=== PATIENT | female | born 1960 | race Caucasian/White ===

== ENCOUNTER 2023-03-09 17:25 | Inpatient (IN) | payer OTHER ==
[~2023-03-09] VITALS: Ht 162.6 cm; Wt 36.7 kg
[~2023-03-09 17:25] MED LIST: PIPERACILLIN /TAZOBACTAM 3.375 G in IV D5W 50 ML IV SCH
[2023-03-09 18:37] LABS: BASOPHILS % (AUTO) 0.1 % (0.0-2.0); EOSINOPHILS % (AUTO) 1.2 % (0.0-6.0); HEMATOCRIT 30 % (33-45); HEMOGLOBIN 10.3 g/dL (11.5-14.8); LYMPHOCYTES # (AUTO) 0.1 K/uL (0.8-4.8); LYMPHOCYTES % (AUTO) 6.1 % (20.0-44.0); MEAN CORPUSCULAR HEMOGLOBIN 32 PG (26.0-33.0); MEAN CORPUSCULAR HGB CONC 34 g/dl (31.0-36.0); MEAN CORPUSCULAR VOLUME 93 fL (82-100); MONOCYTES # (AUTO) 0.3 K/uL (0.1-1.30); MONOCYTES % (AUTO) 11.9 % (2.0-12.0); NEUTROPHILS # (AUTO) 1.7 K/uL (1.8-8.9); NEUTROPHILS % (AUTO) 80.7 % (43.0-81.0); PLATELET COUNT (AUTO) 58 K/uL (150-450); RED BLOOD CELL COUNT(AUTO) 3.24 MIL/uL (4.0-5.2); RED CELL DISTRIBUTION WIDTH 19.8 % (11.5-15.0); WHITE BLOOD COUNT (AUTO) 2.1 K/uL (4.3-11.0)
[2023-03-09 18:45] LABS: CALCIUM, SERUM 10.2 mg/dL (8.5-10.1); CARBON DIOXIDE 25 mmol/L (21-32); CHLORIDE 97 mmol/L (98-107); GLUCOSE 106 mg/dL (74-106); SODIUM SERUM 129 mmol/L (136-145); UREA NITROGEN, BLOOD 18 mg/dL (7-18)
[2023-03-09 18:51] LABS: ALANINE AMINOTRANSFERASE 34 U/L (12-78); ALBUMIN 2.2 g/dL (3.4-5.0); ALKALINE PHOSPHATASE 238 U/L (46-116); ASPARTATE AMINOTRANSFERASE 96 U/L (15-37); BILIRUBIN,DIRECT 12.6 mg/dL (0.0-0.2); BILIRUBIN,TOTAL 16.1 mg/dL (0.2-1.0); TOTAL PROTEIN, SERUM 6.7 g/dL (6.4-8.2)
[2023-03-09 18:59] LABS: LACTIC ACID 2.4 mmol/L (0.4-2.0)
[2023-03-09 19:03] LABS: INR 1.4 (0.91-1.10); PARTIAL THROMBOPLASTIN TIME 35.6 SEC (24.3-34.3); PROTHROMBIN TIME 14.5 SECS (9.2-11.1)
[2023-03-09 19:15] LABS: BAND % (MANUAL) 2 % (0.0-5.0); LYMPHOCYTES % (MANUAL) 8 % (16-48); MONOCYTES % (MANUAL) 6 % (0-11.0); NEUTROPHILS % (MANUAL) 84 (42-76)
[2023-03-09 19:16] LABS: ANISOCYTOSIS 1+; PLATELET ESTIMATE DECRE
[2023-03-09 19:17] LABS: OVALOCYTES 1+
[2023-03-09] MEDS ORDERED: LACTULOSE 10 G/15 ML UDC (PYXIS) ONE (19:20)
[2023-03-09] MEDS ORDERED: LACTULOSE 10 G/15 ML UDC (PYXIS) GT ONE (19:30)
[2023-03-09] MEDS ORDERED: IV NS 0.9% 1,000 ML BAG IV ONE (20:30)
[2023-03-09 20:46] LABS: APPEARANCE,URINE CLEAR (CLEAR); BILIRUBIN,URINE 3+ (NEGATIVE); BLOOD, URINE NEGATIVE Ery/uL (NEGATIVE); COLOR,URINE YELLOW (YELLOW); KETONES,URINE NEGATIVE (NEGATIVE); LEUKOCYTE ESTERASE ,URINE NEGATIVE (NEGATIVE); NITRITE, URINE NEGATIVE (NEGATIVE); PROTEIN,URINE NEGATIVE (NEGATIVE); UGLUCOSE NEGATIVE (NEGATIVE); UROBILINOGEN,URINE 0.2 EU/dL (0.2)
[2023-03-09 20:53] LABS: ADD URINE CULTURE NO; BACTERIA,URINE None seen /HPF (None Seen); RBC,URINE 0-2 /HPF (0-2); URINE AMORPHOUS PHOSPHATES Many /HPF (None Seen); WBC,URINE 0-2 /HPF (0-3)
[2023-03-09] MEDS ORDERED: CEFTRIAXONE 1GM BAG (ER ONLY) 1 GM/50 ML PIGGYBACK IV ONE (21:30)
[2023-03-09] MEDS ORDERED: CEFTRIAXONE 1GM BAG (ER ONLY) 50 ML IV ONE (21:42)
[2023-03-09] MEDS ORDERED: IV D5/ 0.9% NACL 1,000 ML IV PRN (23:00)
[2023-03-09] MEDS ORDERED: LACTULOSE UDC 200 G in SODIUM CHLORIDE IRRIG SOLUTION 400 ML IR ONE (23:00)
[2023-03-09] MEDS: LACTULOSE 10 G/15 ML UDC (PYXIS) NG SCH (23:38)
[2023-03-10] MEDS ORDERED: ZOSYN IVPB 3.375 G in IV D5W 50ml IV ONE ×2
[2023-03-10] MEDS ORDERED: PIPERACI/TAZO 3.375GM/D5W 50ML PB IV ONE (00:31)
[2023-03-10] MEDS: LACTULOSE 10 G/15 ML UDC (PYXIS) NG SCH ×2 (05:03→09:59)
[2023-03-10 07:18] LABS: BILIRUBIN,TOTAL 15.4 mg/dL (0.2-1.0); CREATININE 0.8 mg/dL (0.6-1.3); POTASSIUM 3.9 mmol/L (3.5-5.1); TOTAL PROTEIN, SERUM 6.4 g/dL (6.4-8.2)
[2023-03-10 07:19] LABS: LACTIC ACID 1.5 mmol/L (0.4-2.0)
[2023-03-10 07:20] LABS: BASOPHILS % (AUTO) 0.2 % (0.0-2.0); HEMATOCRIT 28 % (33-45); HEMOGLOBIN 9.8 g/dL (11.5-14.8); LYMPHOCYTES # (AUTO) 0.2 K/uL (0.8-4.8); LYMPHOCYTES % (AUTO) 13.3 % (20.0-44.0); MEAN CORPUSCULAR HEMOGLOBIN 32 PG (26.0-33.0); MEAN CORPUSCULAR HGB CONC 34 g/dl (31.0-36.0); MEAN CORPUSCULAR VOLUME 92 fL (82-100); MONOCYTES # (AUTO) 0.2 K/uL (0.1-1.30); MONOCYTES % (AUTO) 12.6 % (2.0-12.0); NEUTROPHILS % (AUTO) 72.9 % (43.0-81.0); PLATELET COUNT (AUTO) 57 K/uL (150-450); RED BLOOD CELL COUNT(AUTO) 3.11 MIL/uL (4.0-5.2)
[2023-03-10 07:45] LABS: WHITE BLOOD COUNT (AUTO) 1.3 K/uL (4.3-11.0)
[2023-03-10 08:00] VITALS: BP 103/49; TEMP 97.3; O2SAT 100
[2023-03-10] MEDS ORDERED: LACTULOSE UDC 200 G in SODIUM CHLORIDE IRRIG SOLUTION 400 ML IR ONE (08:00)
[2023-03-10] MEDS ORDERED: FURO-145 PO (08:13)
[2023-03-10] MEDS ORDERED: PANT40TA2 PO (08:13)
[2023-03-10] MEDS ORDERED: ERGO500040 PO (08:13)
[2023-03-10] MEDS ORDERED: SUCR1TAB PO (08:13)
[2023-03-10] MEDS ORDERED: URSO500T10 PO (08:13)
[2023-03-10] MEDS ORDERED: LACT10SO58 PO (08:13)
[2023-03-10] MEDS ORDERED: FLUC200T8 PO (08:13)
[2023-03-10] MEDS ORDERED: ZINC220C6 PO (08:13)
[2023-03-10] MEDS ORDERED: MIDO10TA PO (08:13)
[2023-03-10] MEDS ORDERED: RIFA550T PO (08:13)
[2023-03-10] MEDS ORDERED: FENO145T21 PO (08:13)
[2023-03-10] MEDS ORDERED: CIPR500T5 PO (08:13)
[2023-03-10] MEDS ORDERED: SPIR50TA5 PO (08:13)
[2023-03-10] MEDS: PIPERACILLIN /TAZOBACTAM 3.375 G in IV D5W 100 ML IV SCH ×3 (08:51→18:16)
[2023-03-10] MEDS: FUROSEMIDE 20 MG TABLET PO SCH ×2 (09:00→09:51)
[2023-03-10] MEDS ORDERED: HYDROGEL DRESSING 90 GM TUBE TP PRN (09:30)
[2023-03-10] MEDS: PANTOPRAZOLE 40 MG TABLET.DR PO SCH ×2 (09:51→16:25)
[2023-03-10] MEDS: SUCRALFATE 1 G TABLET PO SCH ×4 (09:52→21:32)
[2023-03-10] MEDS: FENOFIBRATE NANOCRYS (145 MG) 145 MG TABLET PO SCH (09:52)
[2023-03-10] MEDS: HYDROGEL DRESSING 90 GM TUBE TP SCH (09:52)
[2023-03-10] MEDS: RIFAXIMIN 550 MG TABLET PO SCH ×2 (09:52→16:25)
[2023-03-10 09:56] LABS: FERRITIN 84 ng/mL (8-388)
[2023-03-10 10:20] LABS: EOSINOPHILS % (MANUAL) 1 % (0-4); LYMPHOCYTES % (MANUAL) 15 % (16-48); MONOCYTES % (MANUAL) 8 % (0-11.0); NEUTROPHILS % (MANUAL) 76 (42-76)
[2023-03-10 10:21] LABS: ANISOCYTOSIS 1+; PLATELET ESTIMATE DECREASED
[2023-03-10 16:00] VITALS: BP 98/47; TEMP 97.1; O2SAT 100
[2023-03-10] MEDS: LACTULOSE 10 G/15 ML UDC (PYXIS) PO SCH ×2 (16:26→23:17)
[2023-03-10 20:00] VITALS: BP 99/57; TEMP 97.5; O2SAT 100
[2023-03-11] VITALS: BP 91/57; TEMP 97.7; O2SAT 99
[2023-03-11] MEDS: PIPERACILLIN /TAZOBACTAM 3.375 G in IV D5W 100 ML IV SCH (01:30)
[2023-03-11 04:00] VITALS: BP 101/75; TEMP 97.7; O2SAT 100
[2023-03-11] MEDS: LACTULOSE 10 G/15 ML UDC (PYXIS) PO SCH ×4 (05:09→21:36)
[2023-03-11 07:14] LABS: BASOPHILS % (AUTO) 0.3 % (0.0-2.0); HEMATOCRIT 28 % (33-45); HEMOGLOBIN 9.5 g/dL (11.5-14.8); LYMPHOCYTES # (AUTO) 0.2 K/uL (0.8-4.8); LYMPHOCYTES % (AUTO) 8.4 % (20.0-44.0); MEAN CORPUSCULAR HEMOGLOBIN 32 PG (26.0-33.0); MEAN CORPUSCULAR HGB CONC 34 g/dl (31.0-36.0); MEAN CORPUSCULAR VOLUME 92 fL (82-100); MONOCYTES # (AUTO) 0.2 K/uL (0.1-1.30); MONOCYTES % (AUTO) 10.2 % (2.0-12.0); NEUTROPHILS # (AUTO) 1.6 K/uL (1.8-8.9); NEUTROPHILS % (AUTO) 80.1 % (43.0-81.0); RED BLOOD CELL COUNT(AUTO) 3.01 MIL/uL (4.0-5.2); RED CELL DISTRIBUTION WIDTH 19.8 % (11.5-15.0); WHITE BLOOD COUNT (AUTO) 2.1 K/uL (4.3-11.0)
[2023-03-11 07:50] LABS: ALBUMIN 1.9 g/dL (3.4-5.0); BILIRUBIN,TOTAL 14.7 mg/dL (0.2-1.0); CALCIUM, SERUM 9.6 mg/dL (8.5-10.1); CREATININE 0.9 mg/dL (0.6-1.3); MAGNESIUM 1.8 mg/dL (1.8-2.4); POTASSIUM 4.3 mmol/L (3.5-5.1); TOTAL PROTEIN, SERUM 6.2 g/dL (6.4-8.2)
[2023-03-11 08:00] VITALS: BP 100/61; TEMP 97.9; O2SAT 100
[2023-03-11 08:51] LABS: PLATELET COUNT (AUTO) 49 K/uL (150-450)
[2023-03-11] MEDS: SPIRONOLACTONE 25 MG TABLET PO SCH (09:45)
[2023-03-11] MEDS: SUCRALFATE 1 G TABLET PO SCH ×4 (09:46→21:33)
[2023-03-11] MEDS: PANTOPRAZOLE 40 MG TABLET.DR PO SCH ×2 (09:46→17:20)
[2023-03-11] MEDS: FENOFIBRATE NANOCRYS (145 MG) 145 MG TABLET PO SCH (09:46)
[2023-03-11] MEDS: RIFAXIMIN 550 MG TABLET PO SCH ×2 (09:46→17:20)
[2023-03-11] MEDS: FUROSEMIDE 20 MG TABLET PO SCH (09:46)
[2023-03-11] MEDS: FLUCONAZOLE (100 MG) 100 MG TABLET PO SCH (09:46)
[2023-03-11] MEDS: ZINC SULFATE 220 MG CAPSULE PO SCH (09:46)
[2023-03-11] MEDS: URSODIOL 500 MG PO SCH ×2 (09:47→17:20)
[2023-03-11] MEDS: HYDROGEL DRESSING 90 GM TUBE TP SCH (09:48)
[2023-03-11 12:00] VITALS: BP 104/67; TEMP 98.7; O2SAT 99
[2023-03-11 16:00] VITALS: BP 96/61; TEMP 97.1; O2SAT 99
[2023-03-11 20:00] VITALS: BP 98/62; TEMP 98.1; O2SAT 100
[2023-03-11 21:30] LABS: ANISOCYTOSIS 1+; BAND % (MANUAL) 1 % (0.0-5.0); EOSINOPHILS % (MANUAL) 1 % (0-4); LYMPHOCYTES % (MANUAL) 7 % (16-48); MONOCYTES % (MANUAL) 15 % (0-11.0); NEUTROPHILS % (MANUAL) 76 (42-76); PLATELET ESTIMATE DECREASED
[2023-03-11] MEDS: ACETAMINOPHEN 650 MG/20.3 ML UDC NG PRN (21:36)
[2023-03-12] VITALS: BP 115/67; TEMP 97.7; O2SAT 97
[2023-03-12] MEDS: ACETAMINOPHEN 650 MG/20.3 ML UDC NG PRN (02:13)
[2023-03-12 03:07] LABS: HBSAG SCREEN Negative (Negative); HEPATITIS A AB, IgM Negative (Negative); HEPATITIS B CORE AB, IgM Negative (Negative)
[2023-03-12 04:00] VITALS: BP 90/58; TEMP 97.9; O2SAT 98
[2023-03-12] MEDS: LACTULOSE 10 G/15 ML UDC (PYXIS) PO SCH ×3 (05:07→18:41)
[2023-03-12 08:00] VITALS: BP 96/57; TEMP 98.1; O2SAT 98
[2023-03-12 08:16] LABS: ALBUMIN 1.8 g/dL (3.4-5.0); CALCIUM, SERUM 9.7 mg/dL (8.5-10.1); POTASSIUM 4.4 mmol/L (3.5-5.1)
[2023-03-12 08:49] LABS: BASOPHILS % (AUTO) 0.3 % (0.0-2.0); EOSINOPHILS % (AUTO) 0.8 % (0.0-6.0); HEMATOCRIT 28 % (33-45); HEMOGLOBIN 9.5 g/dL (11.5-14.8); LYMPHOCYTES # (AUTO) 0.2 K/uL (0.8-4.8); LYMPHOCYTES % (AUTO) 8.9 % (20.0-44.0); MEAN CORPUSCULAR HEMOGLOBIN 31 PG (26.0-33.0); MEAN CORPUSCULAR HGB CONC 34 g/dl (31.0-36.0); MEAN CORPUSCULAR VOLUME 92 fL (82-100); MONOCYTES # (AUTO) 0.2 K/uL (0.1-1.30); MONOCYTES % (AUTO) 9.4 % (2.0-12.0); NEUTROPHILS # (AUTO) 2.1 K/uL (1.8-8.9); NEUTROPHILS % (AUTO) 80.6 % (43.0-81.0); RED BLOOD CELL COUNT(AUTO) 3.08 MIL/uL (4.0-5.2); RED CELL DISTRIBUTION WIDTH 20.5 % (11.5-15.0); WHITE BLOOD COUNT (AUTO) 2.6 K/uL (4.3-11.0)
[2023-03-12] MEDS: SUCRALFATE 1 G TABLET PO SCH ×4 (11:38→20:41)
[2023-03-12] MEDS: SPIRONOLACTONE 25 MG TABLET PO SCH (11:38)
[2023-03-12] MEDS: FLUCONAZOLE (100 MG) 100 MG TABLET PO SCH (11:40)
[2023-03-12] MEDS: FUROSEMIDE 20 MG TABLET PO SCH (11:40)
[2023-03-12] MEDS: FENOFIBRATE NANOCRYS (145 MG) 145 MG TABLET PO SCH (11:40)
[2023-03-12] MEDS: PANTOPRAZOLE 40 MG TABLET.DR PO SCH ×2 (11:40→18:41)
[2023-03-12] MEDS: ZINC SULFATE 220 MG CAPSULE PO SCH (11:41)
[2023-03-12] MEDS: RIFAXIMIN 550 MG TABLET PO SCH ×2 (11:41→18:42)
[2023-03-12] MEDS: URSODIOL 500 MG PO SCH ×2 (11:42→18:41)
[2023-03-12] MEDS: HYDROGEL DRESSING 90 GM TUBE TP SCH (11:43)
[2023-03-12 12:00] VITALS: BP 109/62; TEMP 97.7; O2SAT 100
[2023-03-12 16:00] VITALS: BP 101/68; TEMP 97.9; O2SAT 98
[2023-03-12 16:45] LABS: PROTEIN, BODY FLUID 1.2 G/DL
[2023-03-12 16:48] LABS: APPEARANCE,SPUN,BODY FLUID CLEAR (CLEAR)
[2023-03-12 16:50] LABS: TOTAL VOLUME,BODY FLUID 1050 mL; WBC, BODY FLUID 96 /cu. mm. (0-200)
[2023-03-12 17:18] LABS: MACROPHAGES, BODY FLUID 21
[2023-03-12 17:19] LABS: MONOCYTES,BODY FLUID 35 %; POLYNUCLEAR, BODY FLUID 26 % (0-25)
[2023-03-12 17:42] LABS: ANISOCYTOSIS 1+; BAND % (MANUAL) 6 % (0.0-5.0); LYMPHOCYTES % (MANUAL) 8 % (16-48); MONOCYTES % (MANUAL) 16 % (0-11.0); NEUTROPHILS % (MANUAL) 70 (42-76); PLATELET ESTIMATE DECREASED
[2023-03-12 20:00] VITALS: BP 103/68; TEMP 97.8; TEMP 97.9; O2SAT 97; O2SAT 99
[2023-03-13] VITALS: BP 106/64; TEMP 98; O2SAT 97
[2023-03-13] MEDS: LACTULOSE 10 G/15 ML UDC (PYXIS) PO SCH ×4 (01:25→18:08)
[2023-03-13 01:50] LABS: PLATELET COUNT (AUTO) 61 K/uL (150-450)
[2023-03-13 04:00] VITALS: BP 99/62; TEMP 98.2; O2SAT 94
[2023-03-13 04:51] VITALS: BP 99/62; TEMP 98.2; O2SAT 100
[2023-03-13 07:03] LABS: BASOPHILS % (AUTO) 0.2 % (0.0-2.0); EOSINOPHILS % (AUTO) 0.4 % (0.0-6.0); HEMATOCRIT 31 % (33-45); HEMOGLOBIN 10.8 g/dL (11.5-14.8); LYMPHOCYTES # (AUTO) 0.2 K/uL (0.8-4.8); LYMPHOCYTES % (AUTO) 5.5 % (20.0-44.0); MEAN CORPUSCULAR HEMOGLOBIN 32 PG (26.0-33.0); MEAN CORPUSCULAR HGB CONC 35 g/dl (31.0-36.0); MEAN CORPUSCULAR VOLUME 92 fL (82-100); MONOCYTES # (AUTO) 0.3 K/uL (0.1-1.30); MONOCYTES % (AUTO) 9.7 % (2.0-12.0); NEUTROPHILS # (AUTO) 2.8 K/uL (1.8-8.9); NEUTROPHILS % (AUTO) 84.2 % (43.0-81.0); PLATELET COUNT (AUTO) 71 K/uL (150-450); RED BLOOD CELL COUNT(AUTO) 3.36 MIL/uL (4.0-5.2); RED CELL DISTRIBUTION WIDTH 20.8 % (11.5-15.0); WHITE BLOOD COUNT (AUTO) 3.3 K/uL (4.3-11.0)
[2023-03-13 07:30] VITALS: BP 96/61; TEMP 97.7; O2SAT 100
[2023-03-13 07:31] LABS: ALBUMIN 1.9 g/dL (3.4-5.0); BILIRUBIN,TOTAL 16.6 mg/dL (0.2-1.0); CALCIUM, SERUM 10.4 mg/dL (8.5-10.1); POTASSIUM 4.1 mmol/L (3.5-5.1); TOTAL PROTEIN, SERUM 6.4 g/dL (6.4-8.2)
[2023-03-13] MEDS ORDERED: LACT10SO58 PO (09:29)
[2023-03-13] MEDS ORDERED: AMOX-430 PO (09:29)
[2023-03-13] MEDS: SUCRALFATE 1 G TABLET PO SCH ×4 (10:38→21:52)
[2023-03-13] MEDS: RIFAXIMIN 550 MG TABLET PO SCH ×2 (10:38→18:08)
[2023-03-13] MEDS: ZINC SULFATE 220 MG CAPSULE PO SCH (10:39)
[2023-03-13] MEDS: FUROSEMIDE 20 MG TABLET PO SCH (10:39)
[2023-03-13] MEDS: SPIRONOLACTONE 25 MG TABLET PO SCH (10:39)
[2023-03-13] MEDS: PANTOPRAZOLE 40 MG TABLET.DR PO SCH ×2 (10:39→18:08)
[2023-03-13] MEDS: FENOFIBRATE NANOCRYS (145 MG) 145 MG TABLET PO SCH (10:39)
[2023-03-13] MEDS: HYDROGEL DRESSING 90 GM TUBE TP SCH (10:40)
[2023-03-13] MEDS: URSODIOL 500 MG PO SCH ×2 (10:41→18:08)
[2023-03-13] MEDS: ONDANSETRON HCL/PF 4 MG/2 ML VIAL IV PRN ×2 (12:41→18:29)
[2023-03-13] MEDS: PIPERACILLIN /TAZOBACTAM 3.375 G in IV D5W 50 ML IV SCH ×2 (12:44→18:09)
[2023-03-13 13:03] LABS: CALCIUM, SERUM 10.9 mg/dL (8.5-10.1); POTASSIUM 4.3 mmol/L (3.5-5.1)
[2023-03-13 16:00] VITALS: BP 112/57; TEMP 97.5; O2SAT 99
[2023-03-13 18:55] LABS: BAND % (MANUAL) 1 % (0.0-5.0); LYMPHOCYTES % (MANUAL) 9 % (16-48); MONOCYTES % (MANUAL) 5 % (0-11.0); NEUTROPHILS % (MANUAL) 85 (42-76); PLATELET ESTIMATE DECRE
[2023-03-13 18:56] LABS: ANISOCYTOSIS 1+
[2023-03-13 18:57] LABS: OVALOCYTES RARE
[2023-03-13 20:00] VITALS: BP 109/62; TEMP 97.7; O2SAT 100
[2023-03-14] VITALS: BP 103/70; TEMP 97.6; O2SAT 100
[2023-03-14] MEDS: PIPERACILLIN /TAZOBACTAM 3.375 G in IV D5W 50 ML IV SCH ×2 (00:22→06:27)
[2023-03-14 04:00] VITALS: BP 103/64; TEMP 98.1; O2SAT 100
[2023-03-14 07:30] VITALS: BP 104/59; TEMP 98.4; O2SAT 98
[2023-03-14 07:55] LABS: CALCIUM, SERUM 10.4 mg/dL (8.5-10.1); CREATININE 1.1 mg/dL (0.6-1.3); POTASSIUM 4.2 mmol/L (3.5-5.1)
[2023-03-14] MEDS: SPIRONOLACTONE 25 MG TABLET PO SCH (08:28)
[2023-03-14] MEDS: ZINC SULFATE 220 MG CAPSULE PO SCH (08:28)
[2023-03-14] MEDS: PANTOPRAZOLE 40 MG TABLET.DR PO SCH ×2 (08:28→16:12)
[2023-03-14] MEDS: LACTULOSE 10 G/15 ML UDC (PYXIS) PO SCH ×2 (08:28→16:11)
[2023-03-14] MEDS: SUCRALFATE 1 G TABLET PO SCH ×4 (08:28→21:25)
[2023-03-14] MEDS: FENOFIBRATE NANOCRYS (145 MG) 145 MG TABLET PO SCH (08:28)
[2023-03-14] MEDS: RIFAXIMIN 550 MG TABLET PO SCH ×2 (08:28→16:12)
[2023-03-14] MEDS: FUROSEMIDE 20 MG TABLET PO SCH (08:29)
[2023-03-14] MEDS: URSODIOL 500 MG PO SCH ×2 (08:31→16:12)
[2023-03-14] MEDS: HYDROGEL DRESSING 90 GM TUBE TP SCH (08:58)
[2023-03-14] MEDS ORDERED: MERO1PIG IV (11:39)
[2023-03-14] MEDS: MEROPENEM 1 G in IV NS 0.9% 100 ML IV SCH (12:28)
[2023-03-14 16:00] VITALS: BP 135/39; TEMP 98.2; O2SAT 100
[2023-03-14 20:00] VITALS: BP 111/67; TEMP 97.1; O2SAT 99
[2023-03-15] VITALS: BP 105/64; TEMP 97.6; O2SAT 99
[2023-03-15] MEDS: MEROPENEM 1 G in IV NS 0.9% 100 ML IV SCH ×2 (00:11→11:17)
[2023-03-15 04:00] VITALS: BP 101/62; TEMP 97.7; O2SAT 99
[2023-03-15 07:30] VITALS: BP 91/58; TEMP 98.2; O2SAT 98
[2023-03-15] MEDS ORDERED: SODI100037 PO (07:57)
[2023-03-15] MEDS: SUCRALFATE 1 G TABLET PO SCH ×2 (08:22→13:01)
[2023-03-15] MEDS: FENOFIBRATE NANOCRYS (145 MG) 145 MG TABLET PO SCH (08:23)
[2023-03-15] MEDS: PANTOPRAZOLE 40 MG TABLET.DR PO SCH (08:23)
[2023-03-15] MEDS: LACTULOSE 10 G/15 ML UDC (PYXIS) PO SCH (08:23)
[2023-03-15] MEDS: RIFAXIMIN 550 MG TABLET PO SCH (08:23)
[2023-03-15] MEDS: ZINC SULFATE 220 MG CAPSULE PO SCH (08:24)
[2023-03-15] MEDS: SPIRONOLACTONE 25 MG TABLET PO SCH (08:24)
[2023-03-15] MEDS: URSODIOL 500 MG PO SCH (08:28)
[2023-03-15] MEDS: FUROSEMIDE 20 MG TABLET PO SCH (09:00)
[2023-03-15] MEDS ORDERED: SODIUM CHLORIDE 1000 MG TABLET PO SCH (09:00)
[2023-03-15] MEDS: HYDROGEL DRESSING 90 GM TUBE TP SCH (10:40)
[2023-03-16] MEDS ORDERED: LACT10SO58 PO (18:43)
[2023-03-16] MEDS ORDERED: ACET-868 PO (18:43)
[2023-03-16] MEDS ORDERED: TYL2T PO (18:43)
[2023-03-16] MEDS ORDERED: ZINC56.713 TP (18:43)
[2023-03-16] MEDS ORDERED: NA P133E RC (18:43)
[2023-03-16] MEDS ORDERED: MAGN400O6 PO (18:43)
[2023-03-16] MEDS ORDERED: MERO1VIA23 IV (18:43)
[2023-03-16] MEDS ORDERED: BALS60OI TP (18:43)
[2023-03-16] MEDS ORDERED: SODI100037 PO (18:43)
[2023-03-16] MEDS ORDERED: NEOM28.43 TP (18:43)
[2023-03-16] MEDS ORDERED: PETR113O TP (18:43)
[2023-03-16] MEDS ORDERED: BISA10SU11 RC (18:43)
== END 2023-03-15 15:00 | DRG 441 ==
LOC: ER 17:30 → TELE 22:08
PROVIDERS: ADMIT Internal Medicine; ATTEND Internal Medicine
PROC: 0W993ZX Drainage of Right Pleural Cavity, Percutaneous Approach, Diagnostic (ICD-10-PCS; principal; 2023-03-12)
DX: K76.82 Hepatic encephalopathy (principal); E43 Unspecified severe protein-calorie malnutrition; K65.2 Spontaneous bacterial peritonitis; J69.0 Pneumonitis due to inhalation of food and vomit; E87.1 Hypo-osmolality and hyponatremia; D61.818 Other pancytopenia; Z16.12 Extended spectrum beta lactamase (ESBL) resistance; R78.81 Bacteremia; R18.8 Other ascites; J90 Pleural effusion, not elsewhere classified; E87.20 Acidosis, unspecified; K76.6 Portal hypertension; J98.11 Atelectasis; K72.90 Hepatic failure, unspecified without coma; K74.60 Unspecified cirrhosis of liver; Z20.822 Contact with and (suspected) exposure to COVID-19; L98.9 Disorder of the skin and subcutaneous tissue, unspecified; B96.1 Klebsiella pneumoniae [K. pneumoniae] as the cause of diseases classified elsewhere; E83.52 Hypercalcemia; S20.211A Contusion of right front wall of thorax, initial encounter; X58.XXXA Exposure to other specified factors, initial encounter; Y92.9 Unspecified place or not applicable; K80.20 Calculus of gallbladder without cholecystitis without obstruction
CPT/HCPCS: 36415; 70450-TC; 71045-TC; 74018; 76705-TC; 76882; 80048-TC; 80053-TC; 80061-TC; 80076-TC; 81001; 82040-TC; 82140-TC; 82728-TC; 83516; 83605-TC; 83735-TC; 84295-TC; 84484-TC; 85025-TC; 85730-TC; 87040-TC; 87086-TC; 87186-TC; 88108-TC; 88305-TC; 89051-TC; 97110-TC; 97116-TC; 97530-TC; A4217; A4223; A6248; G0378; J0696; J2185; J2405; J2543; J7030; J7042; J7060

== ENCOUNTER 2023-03-16 15:55 | Emergency (ER) | payer OTHER ==
[~2023-03-16] VITALS: Ht 152.4 cm; Wt 59.0 kg
[~2023-03-16 15:55] MED LIST changes: +ERGO500040 PO; +FENO145T21 PO; +FURO-145 PO; +LACT10SO58 PO; +MERO1PIG IV; +PANT40TA2 PO; -PIPERACILLIN /TAZOBACTAM 3.375 G in IV D5W 50 ML IV SCH; +RIFA550T PO; +SODI100037 PO; +SPIR50TA5 PO; +SUCR1TAB PO; +URSO500T10 PO; +ZINC220C6 PO
[2023-03-16 17:13] LABS: BASOPHILS % (AUTO) 0.2 % (0.0-2.0); EOSINOPHILS # (AUTO) 0.1 K/uL (0.0-0.7); EOSINOPHILS % (AUTO) 1.5 % (0.0-6.0); HEMATOCRIT 32 % (33-45); HEMOGLOBIN 10.7 g/dL (11.5-14.8); LYMPHOCYTES # (AUTO) 0.2 K/uL (0.8-4.8); LYMPHOCYTES % (AUTO) 6.3 % (20.0-44.0); MEAN CORPUSCULAR HEMOGLOBIN 32 PG (26.0-33.0); MEAN CORPUSCULAR HGB CONC 34 g/dl (31.0-36.0); MEAN CORPUSCULAR VOLUME 94 fL (82-100); MONOCYTES # (AUTO) 0.4 K/uL (0.1-1.30); MONOCYTES % (AUTO) 12.1 % (2.0-12.0); NEUTROPHILS # (AUTO) 2.8 K/uL (1.8-8.9); NEUTROPHILS % (AUTO) 79.9 % (43.0-81.0); PLATELET COUNT (AUTO) 71 K/uL (150-450); RED BLOOD CELL COUNT(AUTO) 3.39 MIL/uL (4.0-5.2); WHITE BLOOD COUNT (AUTO) 3.5 K/uL (4.3-11.0)
[2023-03-16 17:44] LABS: INR 1.47 (0.91-1.10); PARTIAL THROMBOPLASTIN TIME 41.6 SEC (24.3-34.3); PROTHROMBIN TIME 15.2 SECS (9.2-11.1)
[2023-03-16 18:08] LABS: CALCIUM, SERUM 9.8 mg/dL (8.5-10.1); CREATININE 0.9 mg/dL (0.6-1.3); POTASSIUM 3.9 mmol/L (3.5-5.1)
[2023-03-16 18:17] LABS: ALBUMIN 1.9 g/dL (3.4-5.0); BILIRUBIN,DIRECT 13.4 mg/dL (0.0-0.2); BILIRUBIN,TOTAL 17.1 mg/dL (0.2-1.0); TOTAL PROTEIN, SERUM 6.5 g/dL (6.4-8.2)
[2023-03-16] MEDS ORDERED: NEOM28.43 TP (18:43)
[2023-03-16] MEDS ORDERED: BISA10SU11 RC (18:43)
[2023-03-16] MEDS ORDERED: ACET-868 PO (18:43)
[2023-03-16] MEDS ORDERED: ZINC56.713 TP (18:43)
[2023-03-16] MEDS ORDERED: MERO1VIA23 IV (18:43)
[2023-03-16] MEDS ORDERED: TYL2T PO (18:43)
[2023-03-16] MEDS ORDERED: PETR113O TP (18:43)
[2023-03-16] MEDS ORDERED: BALS60OI TP (18:43)
[2023-03-16] MEDS ORDERED: NA P133E RC (18:43)
[2023-03-16] MEDS ORDERED: MAGN400O6 PO (18:43)
[2023-03-16] MEDS ORDERED: LACT10SO58 PO (18:43)
[2023-03-16] MEDS ORDERED: SODI100037 PO (18:43)
[2023-03-16 20:25] VITALS: BP 95/63; TEMP 98.3; O2SAT 97
[2023-03-16 21:29] LABS: ANISOCYTOSIS 1+; EOSINOPHILS % (MANUAL) 1 % (0-4); LYMPHOCYTES % (MANUAL) 7 % (16-48); MONOCYTES % (MANUAL) 8 % (0-11.0); NEUTROPHILS % (MANUAL) 84 (42-76); OVALOCYTES 1+; PLATELET ESTIMATE DECREASED; ROULEAUX 1+
== END 2023-03-16 20:25 ==
LOC: ER 15:57
DX: R18.8 Other ascites (principal); K72.90 Hepatic failure, unspecified without coma; E87.1 Hypo-osmolality and hyponatremia; Z79.899 Other long term (current) drug therapy
CPT/HCPCS: 36415; 80048-TC; 80076-TC; 83690-TC; 85025-TC; 85730-TC; 87081-TC